=== PATIENT | female | born 1975 | race Caucasian/White ===

== ENCOUNTER 2024-04-27 00:19 | Emergency (ER) | payer BC, SELFPAY ==
[2024-04-27 00:24] VITALS: BP 164/98; PULSE 108; TEMP 37.1; O2SAT 98; BMI 55.4
--- NOTE | 2024-04-27 00:55 | ED_ITS ---
HPI HPI - General Adult General Chief complaint: Back Pain/Injury Stated complaint: back pain Time Seen by Provider: 04/27/24 00:23 Source: patient Mode of arrival: walk-in Limitations: no limitations History of Present Illness HPI narrative: 48-year-old female to the emergency department with chief complaint of back pain. Patient reports that pain started in her back today. No particular injury. No falls or trauma. She reports the pain is a spasm-like pain in her lumbar back. It is located in the middle of her back. No dysuria, urgency, frequency. No bowel bladder incontinence or retention. No numbness, weakness, tingling. The pain does not travel. It is best when she sits or leans forward. It is worse when she tries to stand up straight. No fever, sweats, chills. Elyssa amezquita does reports she has pain in her right ear, upper respiratory infection last few days. Related Data Previous Rx's ?Medication ?Instructions ?Recorded amoxicillin 875 mg-potassium 1 tab PO Q12H #14 tabs 04/27/24 clavulanate 125 mg tablet diazepam 5 mg tablet (Valium) 5 mg PO Q8H PRN muscle spasm #15 04/27/24 tabs lidocaine 5 % topical patch See Rx Instructions topical 04/27/24 (Lidoderm) .COMPLEX #7 ea Allergies Allergy/AdvReac Type Severity Reaction Status Date / Time acetaminophen (From Tylenol) Allergy Severe Hives Verified 04/27/24 00:24 ibuprofen (From Motrin) Allergy Severe Anaphylaxis Verified 04/27/24 00:24 Opioid HPI Opioid Management Most Recent Opioid Data: Last Pain Scale 10 04/27/24 00:30 04/27/24 Review of Systems ROS Status of ROS 10 or more systems reviewed and unremark able except as noted in history and below PFSH PFSH Social History Little interest or pleasure in doing things: not at all Feeling down, depressed, or hopeless: not at all Exam Narrative Exam Narrative: VITALS: I have reviewed the triage vital signs. GENERAL: Morbidly obese adult female in no distress NEURO: Alert and oriented. Moves all extremities. Face is symmetric and expressive. Patellar reflexes brisk and equal bilaterally. Normal gait. Plantar flexion/dorsiflexion, knee flexion/extension, hip flexion/extension are grossly intact with 5/5 strength. Sensation is intact across the bilateral lower extremities. SPINE: No midline cervical, thoracic, or lumbar tenderness. No step-off or deformities. Increased lumbar paraspinal muscle tenderness and increased tone. EYES: PERRL. No scleral icterus or conjunctival injection. No discharge. HENT: Normocephalic, atraumatic. Hearing is grossly intact. Nares grossly patent and without discharge. Mucous membranes moist. Right TM is bulging, erythematous, purulent fluid behind. Left TM bulging. NECK: No JVD. Patient moves neck without restriction. CARDIO: Rhythm regular. Normal rate. No murmur, rub, or gallop. Pulses equal bilaterally in the upper and lower extremity. No lower extremity edema. PULM: Lungs clear to auscultation in all schumacher. No wheezes, rales, or rhonchi. No conversational dyspnea. No splinting, stridor, or accessory muscle use. GI/: Abdomen is soft and non-tender. Normoactive bowel sounds. No flank tenderness. EXTREMITIES: Symmetric muscle bulk. No joint swelling. No clubbing, cyanosis, or deformity. SKIN: Warm and dry. Normal turgor. No rash or lesions appreciated. PSYCH: Mood, affect, and interaction is appropriate to the setting. Constitutional Vital Signs, click to edit/add: Last Vital Signs Temp 98.8 F 04/27/24 00:24 Pulse 108 H 04/27/24 00:24 Resp 18 04/27/24 00:24 BP 164/98 H 04/27/24 00:24 Pulse Ox 98 04/27/24 00:24 O2 Del Method Room Air 04/27/24 00:24 Course Vital Signs Vital signs: Vital Signs Temperature 98.8 F 04/27/24 00:24 Pulse Rate 108 H 04/27/24 00:24 Respiratory Rate 18 04/27/24 00:24 Blood Pressure 164/98 H 04/27/24 00:24 Pulse Oximetry 98 04/27/24 00:24 Oxygen Delivery Method Room Air 04/27/24 00:24 Temperature 98.8 F 04/27/24 00:24 Pulse Rate 108 H 04/27/24 00:24 Respiratory Rate 18 04/27/24 00:24 Blood Pressure 164/98 H 04/27/24 00:24 Pulse Oximetry 98 04/27/24 00:24 Oxygen Delivery Method Room Air 04/27/24 00:24 Medical Decision Making MDM Narrative Medical decision making narrative: 48-year-old female to the emergency department chief complaint of lumbar back pain. Vital stable, the patient is afebrile. No focal neurologic deficits appreciated exam. History and exam do not suggest cord compressing lesion. No evidence of fracture. High suspicion for muscle strain based on history and exam discussed with patient foregoing imaging at this time and treating conservatively and she agrees. Valium, Kenalog, Lidoderm patch. She does have an ear infection as well. This is incidental. This will be treated with Augmentin. Valium was prescribed for home. Sedation warning was given. Lidoderm patch as well as Augmentin prescription were sent. Return precautions were discussed. All questions were answered. The patient was discharged home. Medical Records Medical records reviewed: Yes I reviewed the patient's medical records Discharge Plan Discharge Chief Complaint: Back Pain/Injury Clinical Impression: Strain of lumbar region Patient Disposition: Home, Self-Care Time of Disposition Decision: 00:50 Condition: Good Mode of Transportation: Private Vehicle Prescriptions / Home Meds: New lidocaine [Lidoderm] 5 % adhesive patch,medicated See Rx Instructions .ROUTE .COMPLEX Qty: 7 0RF Rx Instructions: leave on most painful area for up to 12 hrs amoxicillin-pot clavulanate 875-125 mg tablet 1 tab PO Q12H Qty: 14 0RF diazepam [Valium] 5 mg tablet 5 mg PO Q8H PRN (Reason: muscle spasm) Qty: 15 0RF Print Language: Guatemalan Instructions: Low Back Strain (ED), Lower Back Exercises (ED) Additional Instructions: Call the office of your primary care doctor to arrange for follow-up within the above-stated timeframe. Your ED visit was focused on your acute issue and does not replace primary care. You should review your labs, imaging, and diagnoses from this ED visit with your primary care physician. There may be non-emergent/ incidental findings that need further evaluation. You should review your vital signs including blood pressure with your PCP. If you were prescribed medications you should discuss possible side-effects and drug interactions with your pharmacist. Call 911 or go to the nearest Emergency Department if you develop any new or worsening symptoms. Seek immediate medical attention if you develop: increasing pain, numbness, tingling, weakness, loss of motion in your arms or legs, loss of control of your urine or stool, fever, abdominal pain, chest pain, shortness of breath, or any new or worsening symptoms. Referrals: Physician,Non-Staff, MD [Primary Care Provider] - 1 week
[2024-04-27] MEDS: DIAZEPAM 10 MG/2 ML SYRINGE 5 MG IM (01:01)
[2024-04-27] MEDS: TRIAMCINOLONE ACETONIDE 40 MG/ML VIAL IM (01:01)
[2024-04-27] MEDS: LIDOCAINE 5% PATCH 1 PATCH TOPICAL (01:01)
[2024-04-27] MEDS: AMOXICILLIN/POT CLAV 875-125 MG TABLET 1 TAB PO (01:01)
== END 2024-04-27 01:11 | disposition home or self-care (01) ==
PROVIDERS: Emergency Provider Student in an Organized Health Care Education/Training Program; Family Provider Family Medicine
DX: S39.012A Strain of muscle, fascia and tendon of lower back, initial encounter (principal); X58.XXXA Exposure to other specified factors, initial encounter; E66.01 Morbid (severe) obesity due to excess calories; H66.90 Otitis media, unspecified, unspecified ear; Z68.43 Body mass index [BMI] 50.0-59.9, adult
CPT/HCPCS: 96372; 99284; J3301; J3360